=== PATIENT | female | born 1990 | race African-American/Black ===

== ENCOUNTER 2016-09-06 19:29 | Emergency (ER) | payer OTHER ==
[~2016-09-06] VITALS: Ht 165.1 cm; Wt 128.4 kg
[~2016-09-06 19:29] MED LIST: METR500T PO; SULF1TAB24 PO
[2016-09-06 21:14] VITALS: BP 147/75
[2016-09-06] MEDS ORDERED: SULF1TAB24 PO (21:15)
[2016-09-06] MEDS ORDERED: HYDR-971 PO (21:15)
--- NOTE | 2016-09-06 21:15 | PHYS DOC ---
Past Medical History Past Medical History: No Pertinent History Past Surgical History: Other Additional Past Surgical Histo: TUBAL LIGATION Alcohol Use: None Drug Use: None Adult General Chief Complaint Chief Complaint: UPPER EXTREMITY SWELLING HPI HPI Patient is a 25 year old female reports emergency Department today with complaint of a swollen lump in her right armpit that is been progressive over the past 3 days. Patient denies shaving her armpit. She states that she believes is due to a different deodorant that she used. Patient denies any history of recurrent skin infections. Contact with anyone with a skin infection. She denies antibiotic use within the past 30 days. Patient denies any fevers or chills, myalgias or arthralgias. Review of Systems Review of Systems Constitutional: Denies fever or chills [] Eyes: Denies change in visual acuity, redness, or eye pain [] HENT: Denies nasal congestion or sore throat [] Respiratory: Denies cough or shortness of breath [] Cardiovascular: No additional information not addressed in HPI [] GI: Denies abdominal pain, nausea, vomiting, bloody stools or diarrhea [] : Denies dysuria or hematuria [] Musculoskeletal: Denies back pain or joint pain [] Integument: Denies rash or skin lesions [] Neurologic: Denies headache, focal weakness or sensory changes [] Endocrine: Denies polyuria or polydipsia [] Current Medications Current Medications Current Medications Medications (Trade) Dose Ordered Sig/Mary Start Time Stop Time Status Last Admin Dose Admin Lidocaine/Sodium Bicarbonate (Buffered Lidocaine 1%) 20 ml 1X ONCE 09/06/16 21:30 09/06/16 21:31 DC Allergies Allergies Allergies Coded Allergies Type Severity Reaction Last Updated Verified No Known Drug Allergies 09/06/16 No Physical Exam Physical Exam Constitutional: Well developed, well nourished, no acute distress, non-toxic appearance. [] HENT: Normocephalic, atraumatic, bilateral external ears normal, oropharynx moist, no oral exudates, nose normal. [] Eyes: PERRLA, EOMI, conjunctiva normal, no discharge. [] Neck: Normal range of motion, no tenderness, supple, no stridor. [] Cardiovascular:Heart rate regular rhythm, no murmur [] Lungs & Thorax: Bilateral breath sounds clear to auscultation [] Abdomen: Bowel sounds normal, soft, no tenderness, no masses, no pulsatile masses. [] Skin: 2 cm cutaneous abscess in the center patient's arm.. There is some indurated tissue around this fluctuant pocket. There are also some small inflamed hair follicles in the armpit itself but no evidence of sinus tracts. Back: No tenderness, no CVA tenderness. [] Extremities: No tenderness, no cyanosis, no clubbing, ROM intact, no edema. [] Neurologic: Alert and oriented X 3, normal motor function, normal sensory function, no focal deficits noted. [] Psychologic: Affect normal, judgement normal, mood normal. [] Current Patient Data Vital Signs Vital Signs Date Time Temp Pulse Resp B/P Pulse Ox O2 Delivery O2 Flow Rate FiO2 09/06/16 21:14 98.8 103 20 98 Room Air 98.8 EKG EKG [] Radiology/Procedures Radiology/Procedures Procedure note: 2 cm cutaneous abscess in the right armpit was prepped with Betadine solution. The site was anesthetized with 1% buffered lidocaine. The abscess was incised with an 11 blade scalpel. There was immediate expression of purulent material. The abscess was compressed until no further purulent material was produced. The wound was packed with quarter-inch iodoform packing and dressed with gauze and taped into place. Patient tolerated the procedure well. Course & Med Decision Making Course & Med Decision Making Pertinent Labs and Imaging studies reviewed. (See chart for details) [] Dragon Disclaimer Dragon Disclaimer This electronic medical record was generated, in whole or in part, using a voice recognition dictation system. Departure Departure Impression: Primary Impression: Abscess Disposition: 01 HOME, SELF-CARE Condition: IMPROVED Referrals: NO PCP (PCP) Patient Instructions: Abscess, Care After, Abscess, [id number] Additional Instructions: 1. Review the discharge instructions provided for self-care and reasons to return to the emergency department. 2. Take the packing out in 2 days while you're in the shower. Keep the area covered as it will continue to drain. 3. Take the medication as prescribed. 4. Follow-up with a primary care doctor's office on or Wednesday or return to the emergency department if you are unable to follow-up with a primary care doctor's office. Scripts Hydrocodone/Apap 5-325 ([place] 5-325 Tablet)1 Each Tablet1 Tab PO PRN Q6HRS PRN PAIN #10 TAB Prov:QASIM RHODES 09/06/16 Sulfamethoxazole/Trimethoprim (Bactrim Ds Tablet)1 Each Tablet1 Each PO BID abscess #20 TAB Prov:QASIM RHODES 09/06/16 QASIM RHODES Sep 06, 2016 21:15
[2016-09-06] MEDS ORDERED: LIDOCAINE 1% / SOD BICARB 8.4% 20 ML VIAL. IJ ONE (21:30)
== END 2016-09-06 21:45 | disposition home or self-care (01) ==
LOC: ER 19:29
DX: L02.413 Cutaneous abscess of right upper limb (principal)
CPT/HCPCS: 10060; 99283-25